=== PATIENT | female | born 1995 | race Caucasian/White ===

== ENCOUNTER 2023-06-05 22:08 | Inpatient (IN) | payer MEDICAID ==
[~2023-06-05] VITALS: Ht 170.2 cm; Wt 85.9 kg
[2023-06-05 22:25] VITALS: BP 115/59
[2023-06-05 22:50] LABS: AMORPHOUS SEDIMENT,UR FEW AMOR URATES /LPF; BACTERIA,URINE FEW /HPF; BILIRUBIN,URINE 1+ (NEGATIVE); CLARITY,URINE CLEAR; COLOR,URINE YELLOW; GLUCOSE, URINE (UA) NEGATIVE (NEGATIVE); KETONES,URINE 1+ (NEGATIVE); LEUKOCYTE ESTERASE ,URINE NEGATIVE (NEGATIVE); NITRITE,URINE NEGATIVE (NEGATIVE); PH,URINE 6.5 (5-9); PROTEIN,URINE 2+ (NEGATIVE); RBC,URINE 0-2 /HPF; SQUAMOUS EPITHELIAL CELL,UR 25-50 /HPF; WBC,URINE 0-2 /HPF
[2023-06-05 23:24] LABS: BASOPHILS # (AUTO) 0.1 10^3/uL (0.0-0.1); BASOPHILS % (AUTO) 0 % (0-10); EOSINOPHILS # (AUTO) 0.1 10^3/uL (0.0-0.3); EOSINOPHILS % (AUTO) 1 % (0-10); HEMATOCRIT 33 % (35-52); HEMOGLOBIN 10.4 g/dL (11.5-16.0); LYMPHOCYTES # (AUTO) 2.5 10^3/uL (1.0-4.0); LYMPHOCYTES % (AUTO) 22 % (12-44); MEAN CORPUSCULAR HEMOGLOBIN 27 pg (25-34); MEAN CORPUSCULAR HGB CONC 32 g/dL (32-36); MEAN CORPUSCULAR VOLUME 83 fL (80-99); MEAN PLATELET VOLUME 9.3 fL (9.0-12.2); MONOCYTES # (AUTO) 0.5 10^3/uL (0.0-1.0); MONOCYTES % (AUTO) 4 % (0-12); NEUTROPHILS # (AUTO) 8.3 10^3/uL (1.8-7.8); NEUTROPHILS % (AUTO) 72 % (42-75); PLATELET COUNT 229 10^3/uL (130-400); WHITE BLOOD COUNT 11.6 10^3/uL (4.3-11.0)
[2023-06-05] MEDS ORDERED: LACTATED RINGERS 1,000 ML 1,000 ML IV ONE (23:30)
[2023-06-06] VITALS (65 sets, daily range): BP systolic 96–122; BP diastolic 50–69
[2023-06-06] MEDS: D5 LR 1,000 ML IV SOLN 1,000 ML IV SCH ×2 (00:09→07:56)
[2023-06-06] MEDS ORDERED: BUTORPHANOL INJ 2 MG/ML VIAL IV ONE (03:30)
[2023-06-06] MEDS ORDERED: BUTORPHANOL INJ 2 MG/ML VIAL ONE (03:31)
[2023-06-06] MEDS ORDERED: MINERAL OIL 30 ML UDC ONE (03:32)
[2023-06-06] MEDS ORDERED: [UNRECOGNIZED DRUG - OTHER] IV ONE (03:32)
[2023-06-06] MEDS ORDERED: fentaNYL 2 mcg/ml BUPIVA 0.125 100 ML ONE (03:57)
[2023-06-06] MEDS ORDERED: fentaNYL INJECTION 100 MCG/2 ML VIAL ONE (04:38)
[2023-06-06] MEDS ORDERED: BUPIVACAINE 0.25% 10 ML VIAL ONE (04:38)
[2023-06-06] MEDS ORDERED: NALOXONE 0.4 MG/ML 1 ML VIAL IV PRN ×2 (04:45→15:45)
[2023-06-06] MEDS ORDERED: LACTATED RINGERS 1,000 ML 1,000 ML IV SCH (04:45)
[2023-06-06] MEDS ORDERED: fentaNYL 2 mcg/ml BUPIVA 0.125 100 ML EPI SCH (04:45)
[2023-06-06] MEDS ORDERED: ONDANSETRON INJECTION 4 MG/2 ML (SDV) IV PRN (04:45)
--- NOTE | 2023-06-06 04:54 | History & Physical-OB ---
OB - Chief Complaint & HPI Date/Time Date of Admission: Date of Admission: Jun 06, 2023 at 03:28 Date seen by a Provider: Jun 06, 2023 Time Seen by a Provider: 03:54 Chief Complaint/History OB-Reason for Admission/Chief: Rupture of Membranes Hx : 4 Hx Para: 2 Expected Date of Delivery: Jun 29, 2023 Gestational Age in Weeks: 38 Gestational Age in Days: 0 Indication for induction: history of rapid labor Admission Nurse Assessment Rev: Yes History of Labs A+ GBS neg R-NI HSV+ HIV neg Hep B/C neg RPR neg Other This 27yo presents to L&D with c/o SROM and CTXs Pt states that she has a HO precipitous delivery. Pt als has HO HSV and is on valtrex daily. She denies any lesions or symptoms of HSV. Allergies and Home Medications Allergies Coded Allergies: No Known Drug Allergies (Unverified , 06/05/23) Patient Home Medication List Home Medication List Reviewed: Yes OB - History Hx of Present Care: Yes Ultrasounds: Normal mid trimester US Obstetrical Complications: None Medical Complications: None Information Induced Hypertension: No Maternal Gestational Diabetes: No Hemorrhage: No Obstetrical History Hx : 4 Hx Para: 2 Number of Living Children: 2 Hx Total # of Abortions (Spona: 1 Patient Past Medical History HSV+, Fibromyalgia Appy, Cholecystectomy Social History/Family History Alcohol Use: Denies Use Recreational Drug Use: No Smoking Cessation: Never smoker 2nd Hand Smoke Exposure: No Immunizations Influenza Vaccine Up-to-Date: Yes; Up-to-Date Tetanus Booster (TDap): Less than 5yrs Rubella: not immune RPR/VDRL: Negative GBS Status: Negative HBsAG: Negative OB - Admission Exam Physical Exam Vitals: Vital Signs 06/06/23 00:15 Temp 36.6 Pulse 76 Resp 18 B/P (MAP) 111/55 (73) Pulse Ox 97 O2 Delivery Room Air HEENT: TMs Normal Heart: Rhythm Normal Lungs: Clear Abdomen: Gravid Extremities: Normal Reflexes: Normal Cervical Dilatation: 3cm Effacement: 50% Station: -3 Membranes: Ruptured Amniotic Fluid: Clear Heart Rate: 130's Accelerations: Accelerations Present Decelerations: No Decelerations Short Term Variability: Present Penitentiary Variability: Average (6-25) Contractions on Admission: < 5 Minutes Apart Intensity: Moderate Labs Laboratory Tests Test 06/05/23 22:25 06/05/23 22:36 06/05/23 23:05 06/06/23 03:07 Range/Units Urine Color YELLOW Urine Clarity CLEAR Urine pH 6.5 5-9 Urine Specific [place] >=1.030 1.016-1.022 Urine Protein 2+ H NEGATIVE Urine Glucose (UA) NEGATIVE NEGATIVE Urine Ketones 1+ H NEGATIVE Urine Nitrite NEGATIVE NEGATIVE Urine Bilirubin 1+ H NEGATIVE Urine Urobilinogen 2.0 < = 1.0 MG/DL Urine Leukocyte Esterase NEGATIVE NEGATIVE Urine RBC (Auto) NEGATIVE NEGATIVE Urine RBC 0-2 /HPF Urine WBC 0-2 /HPF Urine Squamous Epithelial Cells 25-50 H /HPF Urine Crystals PRESENT H /LPF Urine Amorphous Sediment FEW ANNA URATES H /LPF Urine Bacteria FEW H /HPF Urine Casts NONE /LPF Urine Mucus LARGE H /LPF Urine Culture Indicated NO Membranes Rupture NEGATIVE POSITIVE White Blood Count 11.6 H 4.3-11.0 10^3/uL Red Blood Count 3.90 3.80-5.11 10^6/uL Hemoglobin 10.4 L 11.5-16.0 g/dL Hematocrit 33 L 35-52 % Mean Corpuscular Volume 83 80-99 fL Mean Corpuscular Hemoglobin 27 25-34 pg Mean Corpuscular Hemoglobin Concent 32 32-36 g/dL Red Cell Distribution Width 13.5 10.0-14.5 % Platelet Count 229 130-400 10^3/uL Mean Platelet Volume 9.3 9.0-12.2 fL Immature Granulocyte % (Auto) 1 % Neutrophils (%) (Auto) 72 42-75 % Lymphocytes (%) (Auto) 22 12-44 % Monocytes (%) (Auto) 4 0-12 % Eosinophils (%) (Auto) 1 0-10 % Basophils (%) (Auto) 0 0-10 % Neutrophils # (Auto) 8.3 H 1.8-7.8 10^3/uL Lymphocytes # (Auto) 2.5 1.0-4.0 10^3/uL Monocytes # (Auto) 0.5 0.0-1.0 10^3/uL Eosinophils # (Auto) 0.1 0.0-0.3 10^3/uL Basophils # (Auto) 0.1 0.0-0.1 10^3/uL Immature Granulocyte # (Auto) 0.1 0.0-0.1 10^3/uL OB - Assessment/Plan/Diagnosis Assessment Assessment: active labor, rupture of membranes Admission Dx IUP @ 38w0d SROM HO precipitous delivery HSV+(no lesions) Labor Admit for labor Admission Status: Inpatient Order (span 2 midnights) Reason for Inpatient Admission: IUP @ 38w0d SROM HO precipitous delivery HSV+ Labor Admit for labor Plan Plan: Expectant Management Copy Copies To 1: GISSEL WATSON MD, VICTORIA A DO Jun 06, 2023 04:54
[2023-06-06] MEDS ORDERED: OXYTOCIN DRIP PRE-MIX 500 ML IV SCH ×2 (10:45→15:45)
[2023-06-06] MEDS ORDERED: OXYTOCIN DRIP PRE-MIX 500 ML IV ONE (10:53)
[2023-06-06] MEDS: diphenhydrAMINE INJ 50 MG/ML VIAL IV PRN ×2 (10:57→17:59)
[2023-06-06] MEDS ORDERED: LIDOCAINE 2% w/EPI 1:200,000 20 ML VIAL ONE (13:04)
--- NOTE | 2023-06-06 15:44 | OB Labor & Delivery Record ---
L&D History Date of Service Date of Service: Jun 06, 2023 History Expected Date of Delivery: Jun 20, 2023 Gestational Age in Weeks: 38 Hx : 4 Hx Para: 2 Complications Events: Routine care Operative Indications (Cesarea: N/A-Vaginal Delivery Intrapartal Events: None L&D Stage1 Stage One Onset of Labor - Date: Jun 06, 2023 Monitors and Tracing Monitor Mode: External Heart Rate: 145 Monitor Decelerations: None Station: -2 Short Term Variability: Present Presentation: Vertex Vital Signs VS - Last 72 Hours, by Label 06/05/23 06/06/23 06/06/23 06/06/23 22:25 00:15 04:00 04:30 Temp 36.6 36.6 36.4 Pulse 73 76 75 72 Resp 18 18 18 B/P (MAP) 115/59 111/55 (73) 121/65 (83) 96/52 (67) Pulse Ox 99 97 97 O2 Delivery Room Air Room Air Room Air Room Air 06/06/23 06/06/23 06/06/23 06/06/23 04:39 04:45 04:48 04:52 Pulse 69 74 72 75 B/P (MAP) 108/60 (76) 117/57 (77) 119/63 (81) Pulse Ox 98 98 99 98 O2 Delivery Room Air Room Air Room Air Room Air 06/06/23 06/06/23 06/06/23 06/06/23 04:54 04:55 05:00 05:02 Pulse 72 70 70 78 B/P (MAP) 110/64 (79) 110/61 (77) 106/60 (75) 108/57 (74) Pulse Ox 98 98 98 98 O2 Delivery Room Air Room Air Room Air Room Air 06/06/23 06/06/23 06/06/23 06/06/23 05:07 05:12 05:15 05:15 Pulse 95 78 81 B/P (MAP) 116/66 (83) 112/59 (76) 113/63 (80) Pulse Ox 98 98 98 O2 Delivery Room Air Room Air Room Air 06/06/23 06/06/23 06/06/23 06/06/23 05:21 05:40 05:55 06:10 Temp 36.3 Pulse 96 70 75 72 Resp 16 16 16 B/P (MAP) 114/69 (84) 112/58 (76) 109/58 (75) 98/53 (68) Pulse Ox 97 96 95 96 O2 Delivery Room Air Room Air Room Air Room Air 06/06/23 06/06/23 06/06/23 06/06/23 06:25 06:40 06:55 07:10 Temp 36.4 Pulse 78 73 82 65 Resp 16 16 16 18 B/P (MAP) 122/67 (85) 115/57 (76) 101/51 (68) 103/50 (67) Pulse Ox 96 98 97 96 O2 Delivery Room Air Room Air Room Air Room Air 06/06/23 06/06/23 06/06/23 06/06/23 07:24 07:40 07:55 08:10 Temp 36.8 Pulse 69 73 76 78 Resp 18 18 18 18 B/P (MAP) 102/51 (68) 107/53 (71) 107/53 (71) 99/54 (69) Pulse Ox 97 97 97 97 O2 Delivery Room Air Room Air Room Air Room Air 06/06/23 06/06/23 06/06/23 06/06/23 08:25 08:40 08:55 09:10 Pulse 76 71 75 65 Resp 18 18 18 18 B/P (MAP) 102/57 (72) 105/51 (69) 102/55 (71) 110/55 (73) Pulse Ox 97 98 97 96 O2 Delivery Room Air Room Air Room Air Room Air 06/06/23 06/06/23 06/06/23 06/06/23 09:25 09:40 09:45 10:00 Temp 36.9 Pulse 76 75 84 85 Resp 18 18 18 18 B/P (MAP) 100/57 (71) 101/54 (70) 100/57 (71) 106/55 (72) Pulse Ox 96 96 97 96 O2 Delivery Room Air Room Air Room Air Room Air 06/06/23 10:15 Pulse 90 Resp 18 B/P (MAP) 115/57 (76) Pulse Ox 96 O2 Delivery Room Air Rupture of Membranes Spontaneous Ruture of Membrane: Yes Amniotic Membrane Rupture Time: 0150 Amniotic Membrane Fluid Desc.: Clear Vaginal Bleeding Description: Normal Show Induction/Anesthesia Epidural Cath Placement - Time: 0453 Progress/Notes Patient admitted in labor by Dr. Tracey earlier this morning. She was given an epidural, SROM had occured, and labor was then augmented after with Pitocin to a max dose of 4 mu. She progressed to complete and + 2 station. L&D Stage2 Stage Two Stage II Date: Jun 06, 2023 Monitors and Tracing Monitor Mode: External Heart Rate: 145 Monitor Decelerations: None Jail Variability: Average (6-10) Short Term Variability: Present Position: Right Occiput Anterior Presentation: Vertex Cord Descript/Complications Cord Vessel Description: 3 Vessels Delivery Type Delivery Method: Spontaneous Vaginal Anterior Shoulder: Left Episiotomy/Perineal Laceration Laceraction(s)/Extensions: No Condition of Delivery 1 minute Comment: 9 5 minute Comment: 9 Notes Live male infant weight pending Condition of Infant Condition of : Living Exam: No Observed Abnormalities Resuscitation Resuscitation: N/A - Spontaneous Resp L&D Stage3 Stage Three Stage III Date: Jun 06, 2023 Pictocin Pitocin Administration mu/min: 2 Pitocin ml/hr: 2 Pitocin Administration Comment: 30 mu wide open after delivery of placenta Placenta Delivery Placenta Delivery: Spontaneous Delivery Summary Summary Estimated blood loss (mL): 300 Attending at delivery: Brady Hadley DO Condition of Delivery Examined: Cervix Examined, Uterus Explored Post Hemorrhage: No Condition of Mother stable Condition of (s) stable BRADY HADLEY DO Jun 06, 2023 15:44
[2023-06-06] MEDS ORDERED: BENZOCAINE/MENTHOL (DERMOPLAST) 56 ML CAN TP PRN (15:45)
[2023-06-06] MEDS ORDERED: Tetanus/Diphtheria/Pertussis (Acell) ADULT Vaccine 0.5 ML IM ONE (15:45)
[2023-06-06] MEDS ORDERED: DIBUCAINE 1% OINTMENT 28 GM TUBE TOP PRN (15:45)
[2023-06-06] MEDS ORDERED: WITCH HAZEL(TUCKS) 40 EA JAR TOP PRN (15:45)
[2023-06-06] MEDS ORDERED: MEASLES, MUMPS, RUBELLA VACCINE (MMR) SQ ONE (15:45)
--- NOTE | 2023-06-06 15:47 | Discharge Inst-Women's Service ---
Discharge Inst-Women's Serv Depart Medication/Instructions New, Converted or Re-Newed RX: Transmitted to Pharmacy Final Diagnosis PPD 1 NVD Problems Reviewed?: Yes Consults/Follow Up Additional Follow Up: Yes Orders/Referrals Dr. Webb/Siomara/ [place] in 6 weeks Activity Activity: Activity as Tolerated Driving Instructions: No Driving for 1 Week NO SMOKING: NO SMOKING Nothing Inside Vagina: No Douching, No [place], No Tampons Diet Discharge Diet: No Restrictions Symptoms to Report to : Bleeding Excessive, Pain Increased, Fever Over 101 Degrees F, Vaginal Bleeding Increase, Questions/Concerns For Any Problems or Questions: Contact Your Physician BARDY HADLEY DO Jun 06, 2023 15:47
[2023-06-06] MEDS ORDERED: IBUP-844 PO (15:49)
[2023-06-06] MEDS ORDERED: FERR325T24 PO (15:49)
[2023-06-06] MEDS ORDERED: BENZ78AE5 TP (15:49)
[2023-06-06] MEDS ORDERED: PNV1TABL67 PO (15:49)
[2023-06-06] MEDS ORDERED: DOCU100C37 PO (15:49)
[2023-06-06] MEDS ORDERED: ACET-93 PO (15:49)
[2023-06-06] MEDS: IBUPROFEN 600 MG TABLET PO SCH ×2 (16:10→22:49)
[2023-06-06] MEDS: ACETAMINOPHEN 500 MG TABLET PO SCH ×2 (16:34→22:49)
[2023-06-06] MEDS ORDERED: CATHETER FLUSH 10 ML SYR IV SCH (22:00)
[2023-06-06] MEDS: DOCUSATE SODIUM 100 MG CAPSULE PO SCH (22:48)
[2023-06-07 03:26] VITALS: BP 101/61
[2023-06-07] MEDS: IBUPROFEN 600 MG TABLET PO SCH ×3 (04:15→16:54)
[2023-06-07] MEDS: ACETAMINOPHEN 500 MG TABLET PO SCH ×3 (04:15→16:54)
[2023-06-07 06:08] LABS: BASOPHILS # (AUTO) 0.1 10^3/uL (0.0-0.1); BASOPHILS % (AUTO) 1 % (0-10); EOSINOPHILS # (AUTO) 0.3 10^3/uL (0.0-0.3); EOSINOPHILS % (AUTO) 3 % (0-10); HEMATOCRIT 29 % (35-52); HEMOGLOBIN 9.1 g/dL (11.5-16.0); LYMPHOCYTES # (AUTO) 2.7 10^3/uL (1.0-4.0); LYMPHOCYTES % (AUTO) 27 % (12-44); MEAN CORPUSCULAR HEMOGLOBIN 26 pg (25-34); MEAN CORPUSCULAR HGB CONC 32 g/dL (32-36); MEAN CORPUSCULAR VOLUME 84 fL (80-99); MONOCYTES # (AUTO) 0.5 10^3/uL (0.0-1.0); MONOCYTES % (AUTO) 5 % (0-12); NEUTROPHILS # (AUTO) 6.4 10^3/uL (1.8-7.8); NEUTROPHILS % (AUTO) 65 % (42-75); PLATELET COUNT 213 10^3/uL (130-400); WHITE BLOOD COUNT 9.9 10^3/uL (4.3-11.0)
[2023-06-07] MEDS ORDERED: PRENATAL VITAMIN TABLET PO SCH (07:00)
--- NOTE | 2023-06-07 08:02 | Postpartum Progress Note ---
Note Note Day # 1 Subjective: Patient is without complaints. Ambulating, voiding. Tolerating a regular diet without nausea or vomiting. Normal lochia. Pain is well controlled with oral pain medications. Objective: Physical Exam: General - Alert and oriented, no apparent distress Abdomen - Soft, appropriately tender to palpation, non-distended, fundus firm at umbilicus Extremities - no edema, negative Andreia's bilaterally Assessment: PPD 1 NVD Acute blood loss anemia Plan: Routine care. Encourage breast feeding. Encourage ambulation. Ferrous sulfate supplementation. Plan for discharge today Vitals - Labs Vital Signs - I&O Vital Signs Date Time Temp Pulse Resp B/P (MAP) Pulse Ox O2 Delivery O2 Flow Rate FiO2 06/07/23 03:26 36.3 58 16 101/61 (74) 98 Room Air 06/06/23 19:20 36.5 72 16 114/64 (81) 98 Room Air 06/06/23 17:45 36.7 67 18 109/64 (79) 97 Room Air 06/06/23 17:30 77 18 113/58 (76) Room Air 06/06/23 17:15 66 18 107/63 (78) Room Air 06/06/23 17:00 64 18 107/59 (75) Room Air 06/06/23 16:45 66 18 111/67 (82) Room Air 06/06/23 16:30 65 18 109/57 (74) Room Air 06/06/23 16:15 64 18 119/59 (79) Room Air 06/06/23 16:00 36.6 79 18 115/66 (82) Room Air 06/06/23 15:45 79 18 118/59 (78) Room Air 06/06/23 15:30 68 18 112/67 (82) Room Air 06/06/23 15:15 68 18 112/67 (82) Room Air 06/06/23 15:00 74 18 117/62 (80) 97 Room Air 06/06/23 14:45 69 18 117/56 (76) 97 Room Air 06/06/23 14:30 69 18 104/54 (71) 99 Room Air 06/06/23 14:15 71 18 104/54 (71) 97 Room Air 06/06/23 14:00 36.6 65 18 102/55 (71) 97 Room Air 06/06/23 13:45 68 18 107/55 (72) 97 Room Air 06/06/23 13:30 78 18 110/59 (76) 97 Room Air 06/06/23 13:15 74 18 105/57 (73) 97 Room Air 06/06/23 13:00 36.9 73 18 99/55 (70) 98 Room Air 06/06/23 12:45 73 18 98/53 (68) 98 Room Air 06/06/23 12:30 75 18 107/57 (74) 97 Room Air 06/06/23 12:15 73 18 104/59 (74) 98 Room Air 06/06/23 12:00 37.1 73 18 104/55 (71) 98 Room Air 06/06/23 11:45 80 18 108/61 (77) 98 Room Air 06/06/23 11:30 69 18 108/58 (75) 98 Room Air 06/06/23 11:15 85 18 103/56 (72) 98 Room Air 06/06/23 11:00 92 18 106/55 (72) 97 Room Air 06/06/23 10:45 92 18 101/53 (69) 98 Room Air 06/06/23 10:30 93 18 106/52 (70) 97 Room Air 06/06/23 10:15 90 18 115/57 (76) 96 Room Air 06/06/23 10:00 36.9 85 18 106/55 (72) 96 Room Air 06/06/23 09:45 84 18 100/57 (71) 97 Room Air 06/06/23 09:40 75 18 101/54 (70) 96 Room Air 06/06/23 09:25 76 18 100/57 (71) 96 Room Air 06/06/23 09:10 65 18 110/55 (73) 96 Room Air 06/06/23 08:55 75 18 102/55 (71) 97 Room Air 06/06/23 08:40 71 18 105/51 (69) 98 Room Air 06/06/23 08:25 76 18 102/57 (72) 97 Room Air 06/06/23 08:10 78 18 99/54 (69) 97 Room Air I & O 06/07/23 06:59 Intake Total 3000 ml Balance 3000 ml Labs Laboratory Tests 06/07/23 05:40: White Blood Count 9.9, Red Blood Count 3.46L, Hemoglobin 9.1L, Hematocrit 29L, Mean Corpuscular Volume 84, Mean Corpuscular Hemoglobin 26, Mean Corpuscular Hemoglobin Concent 32, Red Cell Distribution Width 13.4, Platelet Count 213, Mean Platelet Volume 10.0, Immature Granulocyte % (Auto) 0, Neutrophils (%) (Auto) 65, Lymphocytes (%) (Auto) 27, Monocytes (%) (Auto) 5, Eosinophils (%) (Auto) 3, Basophils (%) (Auto) 1, Neutrophils # (Auto) 6.4, Lymphocytes # (Auto) 2.7, Monocytes # (Auto) 0.5, Eosinophils # (Auto) 0.3, Basophils # (Auto) 0.1, Immature Granulocyte # (Auto) 0.0 BRADY HADLEY DO Jun 07, 2023 08:01
[2023-06-07 08:15] VITALS: BP 116/55
[2023-06-07] MEDS: DOCUSATE SODIUM 100 MG CAPSULE PO SCH (08:18)
[2023-06-07] MEDS ORDERED: FERROUS SULFATE 325 MG (IRON) TABLET PO SCH (09:00)
[2023-06-07 13:40] VITALS: BP 107/59
[2023-06-07] MEDS ORDERED: MEASLES, MUMPS, RUBELLA VACCINE (MMR) ONE (17:02)
[2023-06-07 18:00] VITALS: BP 107/59
--- NOTE | 2023-06-08 10:11 | Anesthesia-Regional Post-Op ---
Regional Patient Condition Mental Status: Alert, Oriented x3 Circulation: Same as Pre-Op Headache: Absent Sensation: Decreased Motor Block: Absent Post Op Complications Complications Patient states that her legs were still numb on 06/07 mid morning. I was informed that she was scheduled for discharge later in the afternoon. Spoke to pt and RN that if patient numbness and tingling not resolved completely she could not be discharged. Follow Up Care/Instructions Patient Instructions Patient was discharged yesterday. Anesthesia/Patient Condition Patient is doing well, no complaints, stable vital signs, no apparent adverse anesthesia problems. No complications reported per nursing. CARA VSOS CRNA Jun 08, 2023 10:11
== END 2023-06-07 18:00 | disposition home or self-care (01) | DRG 806 ==
LOC: LDRP 22:08 → WSo 22:08 → LDRP 06-06 03:28 → WS 06-07 12:50
PROVIDERS: ADMIT Obstetrics & Gynecology; ATTEND Obstetrics & Gynecology
PROC: 10E0XZZ Delivery of Products of Conception, External Approach (ICD-10-PCS; principal; 2023-06-06)
DX: O98.52 Other viral diseases complicating childbirth (principal); D62 Acute posthemorrhagic anemia; Z37.0 Single live birth; Z3A.38 38 weeks gestation of pregnancy; O90.81 Anemia of the puerperium; B00.9 Herpesviral infection, unspecified; O99.892 Other specified diseases and conditions complicating childbirth; M79.7 Fibromyalgia
CPT/HCPCS: 36415; 81000; 84112; 85025; 86850; 86900; 86901; 90707; 99214